=== PATIENT | male | born 2000 | race Caucasian/White ===

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

== ENCOUNTER 2020-10-04 09:19 | Emergency (ER) | payer BC ==
[2020-10-04 09:43] VITALS: BP 144/87; PULSE 108
--- NOTE | 2020-10-04 10:15 | EDM.PDOC ---
<Ama Washburn - Last Filed: 10/04/20 11:29> ED HPI GENERAL MEDICAL PROBLEM - General Chief Complaint: Bite:Animal, Insect Stated Complaint: DEER TICK POSSIBLE LIMES Time Seen by Provider: 10/04/20 10:05 Source of Information: Reports: Patient, Family History Limitations: Reports: No Limitations - History of Present Illness INITIAL COMMENTS - FREE TEXT/NARRATIVE: Normally healthy 20 year old male arrives with complaint of tick bite. He reports that on September 18 he was bit by a tick on his right lateral upper back. On Monday he developed a headache but did not believe it to be a concern. Today developed macular rash surrounding tick bit and has a few other lesions on upper back, abdomen and left forehead. Associated symptoms include headache, chills, diaphoresis, generalized body aches, and fatigue. Onset: Gradual Duration: Day(s):, Getting Worse Location: Reports: Head, Generalized Quality: Reports: Ache, Dull Severity: Moderate Improves with: Reports: None Worsens with: Reports: None Context: Reports: Other (tick bite september 18) Generalized Pain Score (Numeric/FACES): 4 - Related Data Allergies Allergy/AdvReac Type Severity Reaction Status Date / Time No Known Allergies Allergy Verified 10/04/20 09:43 Home Meds: Home Meds NK [No Known Home Meds] 03/02/13 [History] Past Medical History - Past Health History Medical/Surgical History: Denies Medical/Surgical History Musculoskeletal History: Reports: Fracture - Infectious Disease History Infectious Disease History: Reports: None Social & Family History - Tobacco Use Tobacco Use Status *Q: Never Tobacco User ED ROS GENERAL - Review of Systems Review Of Systems: See Below Constitutional: Reports: Chills, Malaise, Weakness, Fatigue, Diaphoresis HEENT: Reports: No Symptoms Respiratory: Denies: Shortness of Breath, Wheezing, Cough Cardiovascular: Reports: No Symptoms. Denies: Chest Pain, Palpitations, Syncope Endocrine: Reports: No Symptoms GI/Abdominal: Denies: Abdominal Pain, Nausea, Vomiting : Denies: Dysuria, Flank Pain, Hematuria Musculoskeletal: Reports: No Symptoms. Denies: Neck Pain, Joint Swelling, Muscle Stiffness Skin: Reports: Rash Neurological: Reports: Headache. Denies: Dizziness, Numbness, Weakness Psychiatric: Reports: No Symptoms Hematologic/Lymphatic: Reports: No Symptoms Immunologic: Reports: No Symptoms ED EXAM, ANIMAL BITE - Physical Exam Exam: See Below Text/Narrative:: Jeff is resting on the chair with family member at his side. He is diaphoretic, but alert, oriented, skin is warm and moist, respirations are regular and non labored. Ambulates with steady gait. Lungs are clear throughout, non abdominal pain or tenderness. Exam Limited By: No Limitations General Appearance: Alert, WD/WN, No Apparent Distress Ears: Normal External Exam Nose: Normal Inspection Throat/Mouth: Normal Inspection, Normal Lips Head: Atraumatic Neck: Normal Inspection, Non-Tender Respiratory/Chest: No Respiratory Distress, Lungs Clear, Normal Breath Sounds, N o Accessory Muscle Use, Chest Non-Tender Cardiovascular: Normal Peripheral Pulses, Regular Rate, Rhythm, No Edema GI/Abdominal: Soft, Non-Tender (Male) Exam: Deferred Rectal (Males) Exam: Deferred Back Exam: Normal Inspection, Full Range of Motion Extremities: Normal Inspection, Normal Range of Motion, Non-Tender Neurological: Alert, Oriented, Normal Cognition, Normal Gait Psychiatric: Normal Affect, Normal Mood Skin Exam: Other (5 cm macular rash surrounding initial tick bite. Small erythemic and indurated lesions on trunk, and left forehead. ) Lymphatic: No Adenopathy Course - Vital Signs Text/Narrative:: discussed with patient the probability of lyme diagnosis. Agreed to blood tests and starting Doxycycline today. No questions at this time. Departure - Departure Disposition: Home, Self-Care 01 Condition: Good Clinical Impression: Tick bite - Discharge Information Instructions: Tick Bite Information, Adult, [id number] Referrals: Russell Smith MD [Primary Care Provider] - Forms: ED Department Discharge Care Plan Goals: Your blood test for lymes was drawn and will take about an hour to result. We can call you with your results but it is probable that they will be positive. Please start 3 week course of Doxycycline twice per day. You should start to get relief from your symptoms in the next couple days. Please return if your symptoms seem to get worse or do not improve with the antibiotic. You can use Tylenol or ibuprofen for your general aches, headache, and fever like symptoms. Sepsis Event Note (ED) - Evaluation Sepsis Screening Result: Possible Sepsis Risk <Rob Guzman - Last Filed: 10/04/20 18:19> Course - Vital Signs Last Recorded V/S: Last Vital Signs Temp 100.8 F H 10/04/20 09:41 Pulse 108 H 10/04/20 09:41 Resp 18 10/04/20 09:41 BP 144/87 H 10/04/20 09:41 Pulse Ox 97 10/04/20 09:41 - Orders/Labs/Meds Orders: Active Orders 24 hr Category Date Time Status H[facility] GRANULOCYTIC [facility] Urgent Lab 10/04/20 10:29 Received LYME, LINE BLOT, SERUM Urgent Lab 10/04/20 10:29 Received Labs: Laboratory Tests 10/04/20 Range/Units 10:29 Lyme Disease IgG Ab Negative (Negative) Lyme Disease IgM Ab Positive H (Negative) Departure - Departure Time of Disposition: 10:43 Sepsis Event Note (ED) - Focused Exam Vital Signs: Vital Signs Temp Pulse Resp BP Pulse Ox 10/04/20 09:41 100.8 F H 108 H 18 144/87 H 97 - My Orders Last 24 Hours: My Active Orders 10/04/20 10:29 HUMAN GRANULOCYTIC [facility]-H[facility] Urgent LYME, LINE BLOT, SERUM Urgent - Assessment/Plan Last 24 Hours: My Active Orders 10/04/20 10:29 HUMAN GRANULOCYTIC [facility] Urgent LYME, LINE BLOT, SERUM Urgent Attestation - Student - Attestation Statement Attestation Statement: I personally performed or re-performed the physical examination and medical decision making. I have verified all student documentation or findings, including history, physical exam and/or medical decision making.
[2020-10-09 14:11] LABS: HGE IGG TITER Negative (Neg:<1:64); HGE IGM TITER Negative (Neg:<1:20)
== END 2020-10-04 11:05 | disposition home or self-care (01) ==
LOC: JP.ED 09:19
DX: S20.461A Insect bite (nonvenomous) of right back wall of thorax, initial encounter (principal); S00.86XA Insect bite (nonvenomous) of other part of head, initial encounter; W57.XXXA Bitten or stung by nonvenomous insect and other nonvenomous arthropods, initial encounter
CPT/HCPCS: 86617; 86617-59; 86618; 86666; 99282